=== PATIENT | male | born 1990 | race Caucasian/White ===

== ENCOUNTER 2016-09-02 20:09 | Emergency (ER) | payer BC ==
[~2016-09-02] VITALS: Ht 188 cm; Wt 81.6 kg
[2016-09-02 20:15] VITALS: BP 138/83
== END 2016-09-02 21:29 | disposition home or self-care (01) ==
LOC: ER 20:09
DX: S60.221A Contusion of right hand, initial encounter (principal); W22.8XXA Striking against or struck by other objects, initial encounter; Y93.89 Activity, other specified; Y92.89 Other specified places as the place of occurrence of the external cause; Y99.9 Unspecified external cause status
CPT/HCPCS: 73130; 99284; A4606; Z7610